=== PATIENT | female | born 1990 | race Caucasian/White ===

== ENCOUNTER 2021-05-25 08:00 | Outpatient (CLI) | payer OTHER | END 2021-05-25 08:01 | disposition home or self-care (01) | LOC: LAB.N 08:00 | PROVIDERS: ATTEND Family Medicine | DX: R50.9 Fever, unspecified (principal); Z20.822 Contact with and (suspected) exposure to COVID-19 ==

== ENCOUNTER 2023-08-10 08:00 | Outpatient (CLI) | payer OTHER ==
[2023-08-12 04:09] LABS: HSV-1 DNA Positive (Negative); HSV-2 DNA Negative (Negative)
== END 2023-08-10 23:59 | disposition home or self-care (01) ==
LOC: LAB.N 08:00
PROVIDERS: ATTEND Nurse Practitioner
DX: B00.1 Herpesviral vesicular dermatitis (principal)
CPT/HCPCS: 87070; 87205; 87529